=== PATIENT | male | born 1980 | race Caucasian/White ===

== ENCOUNTER → 2023-06-21 14:38 | Outpatient (CLI) | payer OTHER, SELFPAY ==
--- NOTE | 2023-06-21 14:15 | DI.RAD_ITS ---
Exam(s) XR FOOT LT COMPLETE XR FOOT RT COMPLETE EXAM: XR FOOT RT COMPLETE CLINICAL HISTORY: Comparison [id number] PAIN. TECHNIQUE: 2D digital imaging was performed. Three views feet. COMPARISON: CR XR FOOT LT COMPLETE from 06/21/2023 FINDINGS: BONES: No acute fracture is present. No bony destructive lesion is seen. JOINTS: No dislocation present. Plantar arch is maintained. Bilateral mild varus deviation of the 1 st metatarsal. SOFT TISSUE: Normal. IMPRESSION: Mild bilateral varus deviation of the 1st metatarsals.. DATA REPOSITORY: RADIATION DOSE DELIVERED:
== END ==
PROVIDERS: PCP Family Medicine; Visit Provider Podiatrist
DX: M20.5X1 Other deformities of toe(s) (acquired), right foot (principal); M79.671 Pain in right foot
CPT/HCPCS: 73630

== ENCOUNTER → 2023-06-29 03:29 | Outpatient (CLI) | payer OTHER, SELFPAY ==
--- NOTE | 2023-06-29 15:30 | DI.MRI_ITS ---
Exam(s) MR LOWER EXTREMITY LT WO EXAM: MR LOWER EXTREMITY LT WO CLINICAL HISTORY: pain to the left 4/5 met cuboid joint,SPRAIN METATARSAL JOINT,S93.622A TECHNIQUE: Multiplanar multisequence MRI was performed. Field of view of this study does not include the most posterior aspect of the calcaneus and Achilles tendon. COMPARISON: No exams were available for comparison FINDINGS: MARROW/ARTICULATIONS:There is no evidence of stress fracture, bone contusion, nor avascular necrosis. However, there is a significant osteochondral defect evident in the medial aspect of the talar dome which measures 1.2 cm wide by 0.3 cm deep by 1.4 cm AP. There is no obvious loose intra-articular stephanie dy. There is mild bone edema evident in both both medial lateral malleoli without bone edema in the p osterior malleolus. No prominent ankle joint effusion evident. There are small joint effusions in the metatarsophalangeal joints of the 1st and 2nd toes. There are no significant degenerative changes in the articulations of the foot. No obvious para-articular ganglia cysts evident. No evidence of osseous tarsal coalition. SINUS TARSI: There is mild loss of fat signal in the sinus tarsi. 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 No surrounding prominent bone edema evident. LISFRANC JOINT: Ligament intact. There is mild focal subarticular edema in the lateral aspect of the base of the great toe metatarsal. No fracture at this level. MUSCLES/TENDONS: There is no evidence of abnormal signal nor mass in the visualized muscles.All of th e tendons on the medial and lateral aspect of the foot appear intact. no evidence of tendon tears nor tenosynovitis. PLANTAR FASCIA: Unremarkable. No abnormal thickening nor abnormal signal. No abnormal nodularity. OTHER: There is a skin-subcutaneous artifact on the lateral plantar surface of the foot subjacent to the cuboid/4th-5th tarsometatarsal joints consistent with foreign body artifact at this level. This i s either in the skin or subcutaneous tissues at this level. There is no evidence of abscess at this l evel. IMPRESSION: 1. No evidence of stress fracture. 2. Osteochondral defect in the medial aspect of the talar dome note, with measurements as above. 3. Mild effusions at the metatarsophalangeal joints of the 1st and 2nd toes. No obvious degenerative changes in these articulations. 4. Prominent artifact on the undersurface of the lateral aspect of the foot subjacent to the cuboid r egion and consistent with foreign body. I recommend patient return at no charge for repeat sagittal s equences. This should also include the Achilles tendon which was not included in the field of view he re. This should be performed with bare foot (NO SOCKS). This will determine if the artifact is still present which would imply that there has been puncture wound. DATA REPOSITORY:
== END ==
PROVIDERS: PCP Family Medicine; Visit Provider Podiatrist
DX: S93.622A Sprain of tarsometatarsal ligament of left foot, initial encounter (principal)
CPT/HCPCS: 73718

== ENCOUNTER → 2023-07-11 02:55 | Outpatient (CLI) | payer OTHER, SELFPAY ==
--- NOTE | 2023-07-11 14:45 | DI.MRI_ITS ---
Exam(s) MR LOWER EXTREMITY LT WO EXAM: MR LOWER EXTREMITY LT WO CLINICAL HISTORY: ADDITIONAL VIEWS TO COMPLETE 06/29/23 MRI. TECHNIQUE: Multiplanar multisequence MRI was performed. COMPARISON: MR MR LOWER EXTREMITY LT WO from 06/29/2023 FINDINGS: The abnormality previously seen along the dorsum of the foot adjacent to the cuboid is no longer visu alized and must of represented an external artifact. There is no abnormality seen in the subcutaneou s tissues along the plantar surface of the foot. The Achilles tendon is intact without evidence of a tear. There is a small amount of fluid seen in t he retrocalcaneal bursa. Please refer to the MRI report, from 06/29/2023, for the remaining details. IMPRESSION: 1. The areas seen in the subcutaneous lateral aspect of the foot is no longer visualized and likely r eflected external artifact. 2. No evidence of Achilles tendon tear. DATA REPOSITORY:
== END ==
PROVIDERS: PCP Family Medicine; Visit Provider Podiatrist
DX: S93.622D Sprain of tarsometatarsal ligament of left foot, subsequent encounter (principal); X58.XXXD Exposure to other specified factors, subsequent encounter
CPT/HCPCS: 73718

== ENCOUNTER 2023-10-04 09:38 | Outpatient (CLI) | payer OTHER, SELFPAY ==
[2023-10-04 07:31] LABS: Abs Immature Grans 0.01 10^3/uL (0.0-0.06); Absolute Basophil Count 0.05 10^3/uL (0.0-0.2); Absolute Eosinophil Count 0.28 10^3/uL (0.0-0.7); Absolute Lymphocyte Count 1.32 10^3/uL (1.2-3.4); Absolute Monocyte Count 0.54 10^3/uL (0.1-0.8); Absolute Neutrophil Count 2.52 10^3/uL (1.2-6.7); Basophils % 1.1; Eosinophils % 5.9; HCT 42.7 % (40.0-50.0); HGB 14.4 g/dL (13.5-17.5); Immature Grans % 0.2; MCH 30.5 pg (27.0-33.0); MCHC 33.7 % (32.0-36.0); MCV 91 fL (80-95); MPV 9.3 fL (8.0-11.0); Monocytes % 11.4; Neutrophils % 53.4; Platelet Count 281 10^3/uL (130-400); RBC 4.72 10^6/uL (4.36-5.78); RDW 12.1 % (11.8-14.1); RDW-SD 40.2 fL; WBC 4.72 10^3/uL (4.4-10.8)
[2023-10-04 07:47] LABS: Anion Gap 8.8 mmol/L (3-11); BUN 13 mg/dL (7-18); CO2 28.2 mmol/L (21.0-32.0); Calcium 9.2 mg/dL (8.5-10.1); Calculated LDL 107 mg/dL (<100); Chloride 100 mmol/L (98-107); Cholesterol 203 mg/dL (<200); Estimated GFR 94.59 (mL/min/1.73m2); Glucose 104 mg/dL (74-106); HDL Cholesterol 75 mg/dL (40-60); Potassium 3.8 mmol/L (3.5-5.1); Sodium 137 mmol/L (136-145); Triglyceride 109 mg/dL (<150)
== END 2023-10-04 09:39 | disposition home or self-care (01) ==
LOC: LBO 09:38
PROVIDERS: PCP Family Medicine; Visit Provider Family Medicine
DX: Z00.00 Encounter for general adult medical examination without abnormal findings (principal)
CPT/HCPCS: 36415; 80048; 80061; 85025